=== PATIENT | male | born 1940 | race Caucasian/White ===

== ENCOUNTER 2016-11-21 11:28 | Inpatient (IN) | payer OTHER ==
[~2016-11-21] VITALS: Ht 180.3 cm; Wt 82.0 kg
[2016-11-21 13:15] LABS: Hematocrit 43.7 % (41.0-53.0); Hemoglobin 14.9 g/dL (13.5-17.5); Mean Corpuscular Hemoglobin 31.4 pg (28.0-32.0); Mean Corpuscular Hgb Conc. 34.1 g/dL (32.0-36.0); Mean Corpuscular Volume 92.3 fL (80.0-100.0); Mean Platelet Volume 8.6 fL (7.4-10.4); Platelet Count (auto) 166 10^3/uL (140-450); Red Cell Distribution Width 13.5 % (11.6-16.0); SUSPECT VIEW TRANSMISSION; White Blood Cell 20.5 10^3/uL (4.4-10.8)
[2016-11-21 13:30] LABS: Partial Thromboplastin Time 35.9 sec (22.64-33.71)
[2016-11-21 13:39] LABS: Metamyelocytes % 0; Myelocytes % 0; Promyelocytes % 0; Reactive Lymphocytes 0
[2016-11-21 13:45] LABS: INR 1.17 (0.9-1.15)
[2016-11-21 14:00] LABS: Burr Cells FEW; Large Platelets FEW
[2016-11-21 14:01] LABS: Platelet Estimate Adequa
[2016-11-21 14:13] LABS: BUN/Creatinine Ratio 20.2; Bilirubin, Total 0.8 mg/dL (0.2-1.0); Calcium 8.4 mg/dL (8.5-10.1); Magnesium 2.2 mg/dL (1.6-2.6); Total Protein 7.4 g/dL (6.4-8.2)
[2016-11-21] MEDS ORDERED: SODIUM CHLORIDE 0.9% 1,000 ML IV ONE ×2 (14:45)
[2016-11-21] MEDS ORDERED: SODIUM CHLORIDE 0.9% 250 ML IV ONE (14:45)
[2016-11-21] MEDS ORDERED: PIPERACILLIN-TAZOB 3.375GM 100 ML IV ONE (14:45)
[2016-11-21] MEDS ORDERED: ENOXAPARIN SOD 80 MG/0.8ML SYRINGE SC ONE (15:30)
[2016-11-21] MEDS ORDERED: MORPHINE SULF INJ 2 MG/ML SYRINGE 1ML IV PRN ×2 (16:00)
[2016-11-21] MEDS: SODIUM CHLORIDE 0.9% 1,000 ML IV SCH (16:00)
[2016-11-21] MEDS ORDERED: ERTAPENEM SOD INJ 1 GM in SODIUM CHL 0.9% 50 ML IV ONE (16:00)
[2016-11-21] MEDS ORDERED: ONDANSETRON HCL 4 MG/2 ML VIAL IV PRN (16:00)
[2016-11-21] MEDS ORDERED: NITROGLYCERIN 0.4 MG SL TAB SL PRN (16:00)
[2016-11-21 16:10] LABS: Lactic Acid 2.1 mmol/L (0.4-2.0)
[2016-11-21 16:24] LABS: REFLEX LACTIC ACID YES OR NO YES
[2016-11-21 17:13] LABS: Urine Bilirubin Negative (Negative); Urine Color Yellow (Yellow); Urine Glucose Normal (Normal); Urine Ketone Negative (Negative); Urine Mucus FEW (None Seen); Urine Nitrite Negative (Negative); Urine RBC 16 /hpf (0 - 3); Urine WBC Clumps PRESENT /hpf (None Seen); Urine pH 5.5 (5.0-8.0)
[2016-11-21 17:32] LABS: Urine Blood 3+ /uL (Negative)
[2016-11-21 18:08] LABS: Lactic Acid 2.1 mmol/L (0.4-2.0)
[2016-11-21 18:18] LABS: REFLEX LACTIC ACID YES OR NO NO
[2016-11-21] MEDS: TAMSULOSIN HYDROCHLORIDE 0.4 MG CAP PO SCH (18:30)
[2016-11-21] MEDS: HYDROcodone-ACET 5/325MG TAB PO PRN (18:30)
[2016-11-21] MEDS ORDERED: CLOP75TA28 PO (19:53)
[2016-11-21] MEDS ORDERED: POTA1TAB64 PO (19:53)
[2016-11-21] MEDS ORDERED: LISI2.5T47 PO (19:53)
[2016-11-21] MEDS ORDERED: OMEG306C OR (19:53)
[2016-11-21 20:00] VITALS: BP 99/43
[2016-11-21 22:00] VITALS: BP 99/43
[2016-11-22] MEDS: SODIUM CHLORIDE 0.9% 1,000 ML IV SCH ×3 (02:09→21:31)
[2016-11-22 05:23] LABS: Hematocrit 36.3 % (41.0-53.0); Hemoglobin 12.4 g/dL (13.5-17.5); Mean Corpuscular Hemoglobin 31.5 pg (28.0-32.0); Mean Corpuscular Hgb Conc. 34.2 g/dL (32.0-36.0); Mean Platelet Volume 9.6 fL (7.4-10.4); Platelet Count (auto) 118 10^3/uL (140-450); Red Cell Distribution Width 13.8 % (11.6-16.0); SUSPECT VIEW TRANSMISSION; White Blood Cell 10.4 10^3/uL (4.4-10.8)
[2016-11-22 05:30] VITALS: BP 109/45
[2016-11-22 05:39] LABS: Myelocytes % 0; Promyelocytes % 0; Reactive Lymphocytes 0
[2016-11-22 05:42] LABS: Calcium 7.4 mg/dL (8.5-10.1); Potassium 3.7 mmol/L (3.5-5.1)
[2016-11-22 05:45] LABS: BUN/Creatinine Ratio 27.4
[2016-11-22 06:17] LABS: Metamyelocytes % 1; Platelet Estimate Adequate
[2016-11-22] MEDS: HYDROcodone-ACET 5/325MG TAB PO PRN ×2 (06:55→21:34)
[2016-11-22 08:36] VITALS: BP 116/55
[2016-11-22] MEDS: ERTAPENEM SOD INJ 1 GM in SODIUM CHL 0.9% 50 ML IV SCH (10:51)
[2016-11-22] MEDS ORDERED: FOLIC ACID 1 MG TAB PO ONE (11:15)
[2016-11-22] MEDS ORDERED: THIAMINE HCL 100 MG TAB PO ONE (11:15)
[2016-11-22 12:00] VITALS: BP 129/68
[2016-11-22 16:00] VITALS: BP 142/86
[2016-11-22] MEDS: TAMSULOSIN HYDROCHLORIDE 0.4 MG CAP PO SCH (17:56)
[2016-11-22 18:00] VITALS: BP 128/58
[2016-11-22 22:00] VITALS: BP 120/56
[2016-11-23 06:00] VITALS: BP 128/58
[2016-11-23] MEDS: HYDROcodone-ACET 5/325MG TAB PO PRN (06:47)
[2016-11-23] MEDS: SODIUM CHLORIDE 0.9% 1,000 ML IV SCH (08:00)
[2016-11-23] MEDS: ERTAPENEM SOD INJ 1 GM in SODIUM CHL 0.9% 50 ML IV SCH (08:53)
[2016-11-23] MEDS ORDERED: THIAMINE HCL 100 MG TAB PO SCH (10:00)
[2016-11-23] MEDS ORDERED: FOLIC ACID 1 MG TAB PO SCH (10:00)
== END 2016-11-23 12:00 | disposition short-term general hospital (02) | DRG 871 ==
LOC: ER 11:48 → OVERFLOW 11:49 → TELE-E-ADS 18:05 → TELE-WESTW 19:45
PROVIDERS: ADMIT Internal Medicine; ATTEND Family Medicine
DX: A41.50 Gram-negative sepsis, unspecified (principal); N17.0 Acute kidney failure with tubular necrosis; N39.0 Urinary tract infection, site not specified; F10.10 Alcohol abuse, uncomplicated; N40.1 Benign prostatic hyperplasia with lower urinary tract symptoms; R33.8 Other retention of urine; F17.210 Nicotine dependence, cigarettes, uncomplicated; I10 Essential (primary) hypertension; I67.2 Cerebral atherosclerosis; I70.0 Atherosclerosis of aorta; N40.0 Benign prostatic hyperplasia without lower urinary tract symptoms; N43.3 Hydrocele, unspecified; R31.9 Hematuria, unspecified; B96.20 Unspecified Escherichia coli [E. coli] as the cause of diseases classified elsewhere; R32 Unspecified urinary incontinence; Z89.421 Acquired absence of other right toe(s)
CPT/HCPCS: 36415; 51702; 70450; 71010; 74176; 80048; 80053; 81001; 82962; 83605; 83735; 84484; 85007; 85027; 85610; 85730; 87040; 87077; 87081; 87086; 87088; 87186; 94761; 96365; 96368; 96372; J1335; J2543

== ENCOUNTER 2018-07-27 03:00 | Emergency (ER) | payer OTHER ==
[~2018-07-27] VITALS: Ht 175.3 cm; Wt 77.1 kg
[~2018-07-27 03:00] MED LIST: CLOP75TA28 PO; LISI2.5T47 PO; OMEG306C OR; POTA1TAB64 PO
[2018-07-27 03:42] LABS: Basophils # (auto) 0.1 uL; Basophils % (auto) 0.5 % (0.0-2.0); Eosinophils # (auto) 0.3 uL; Eosinophils % (auto) 3.3 % (0.0-7.0); Hematocrit 39.4 % (41.0-53.0); Hemoglobin 13.3 g/dL (13.5-17.5); Lymphocytes % (auto) 10.5 % (10.0-50.0); Mean Corpuscular Hemoglobin 30.9 pg (28.0-32.0); Mean Corpuscular Hgb Conc. 33.7 g/dL (32.0-36.0); Mean Corpuscular Volume 91.6 fL (80.0-100.0); Monocytes # (auto) 0.6 uL; Monocytes % (auto) 6.8 % (0.0-12.0); Neutrophils # (auto) 7.4 uL; Neutrophils % (auto) 78.9 % (37.0-80.0); Platelet Count (auto) 234 10^3/uL (140-450); Red Cell Distribution Width 13.1 % (11.8-14.3); White Blood Cell 9.4 10^3/uL (4.4-10.8)
[2018-07-27 03:48] LABS: Alanine Aminotransferase 35 U/L (16-61); Anion Gap 10 (5-15); BUN/Creatinine Ratio 14.6; Blood Alcohol < 3.0 mg/dL (0-5); Blood Urea Nitrogen 21 mg/dL (7-18); Calcium 8.2 mg/dL (8.5-10.1); Carbon Dioxide 21 mmol/L (21-32); Chloride 108 mmol/L (98-107); GFR African American 61 mL/min; GFR Non-African American 51 mL/min; Glucose 101 mg/dL (74-106); Magnesium 1.7 mg/dL (1.6-2.6); Potassium 4.3 mmol/L (3.5-5.1); Sodium 139 mmol/L (136-145)
[2018-07-27 03:49] LABS: INR 1.02 (0.9-1.15); Partial Thromboplastin Time 28.6 sec (23.78-33.04); Prothrombin Time 10.9 sec (9.27-12.13)
[2018-07-27 03:55] LABS: Alkaline Phosphatase 80 U/L (45-117); Aspartate Aminotransferase 17 U/L (15-37); Bilirubin, Total 0.3 mg/dL (0.2-1.0); Total Protein 6.5 g/dL (6.4-8.2)
[2018-07-27 04:10] LABS: Phenytoin (Dilantin) 0.7 ug/mL (10-20); Valproic Acid (Depakene) < 3.0 ug/mL (50-100)
[2018-07-27] MEDS ORDERED: LORazepam 2MG/ML-1ML VIAL ONE (04:17)
[2018-07-27] MEDS ORDERED: LORazepam 2MG/ML-1ML VIAL IV ONE (04:30)
[2018-07-27] MEDS ORDERED: LORazepam 2MG/ML-1ML VIAL IV PRN (04:30)
[2018-07-27 04:33] LABS: Alcohol, Urine < 3.0 mg/dL (0-5); Amphetamine Screen, Urine NEGATIVE (NEGATIVE); Barbiturate Scree,Urine NEGATIVE (NEGATIVE); Benzodiazephine Screen, Urine NEGATIVE (NEGATIVE); Cannabinoid Screen, Urine NEGATIVE (NEGATIVE); Cocaine Screen, Urine NEGATIVE (NEGATIVE); Opiate Scree,Urine NEGATIVE (NEGATIVE); Phencyclidine Screen, Urine NEGATIVE (NEGATIVE)
[2018-07-27 06:31] VITALS: BP 197/67
== END 2018-07-27 06:52 | disposition short-term general hospital (02) ==
LOC: ER 03:00 → EDBD 03:00 → ER 06:52
DX: I61.9 Nontraumatic intracerebral hemorrhage, unspecified (principal); G40.909 Epilepsy, unspecified, not intractable, without status epilepticus; F17.210 Nicotine dependence, cigarettes, uncomplicated; I10 Essential (primary) hypertension
CPT/HCPCS: 36415; 70450; 71045; 80053; 80164; 80185; 80307; 80320; 83735; 85025; 85610; 85730; 93005; 96374; 99291; J2060